=== PATIENT | male | born 1985 | race American Indian/Alaskan Native ===

== ENCOUNTER 2017-06-26 09:22 | Emergency (ER) | payer SELFPAY ==
[2017-06-26 10:28] VITALS: BP 117/81
[2017-06-26] MEDS ORDERED: FLEXERIL PO ONE (10:42)
[2017-06-26] MEDS ORDERED: MOTRIN PO ONE (10:42)
--- NOTE | 2017-06-26 10:47 | Emergency Department Report ---
ED Neck Pain [facility] Chief Complaint: Neck Pain/Injury Stated Complaint: NECK PAIN Time Seen by Provider: 06/26/17 10:39 Duration: 2 weeks Neck Pain Location: Lateral Neck, Trapezius Severity: moderate Mechanism: Awkward Position Symptoms: Yes Pain with Movement, Yes Radiation to Right Upper Ext, Yes Previous History, No Radiation to Left Upper Ext, No Numbness, No Weakness ED Review of Systems ROS: Stated complaint: NECK PAIN Other details as noted in HPI Constitutional: denies: chills, fever Eyes: denies: eye pain, eye discharge, vision change ENT: denies: ear pain, throat pain Respiratory: denies: cough, shortness of breath, wheezing Cardiovascular: denies: chest pain, palpitations Endocrine: no symptoms reported Gastrointestinal: denies: abdominal pain, nausea, diarrhea Genitourinary: denies: urgency, dysuria Musculoskeletal: myalgia. denies: back pain, joint swelling, arthralgia Skin: denies: rash, lesions Neurological: denies: headache, weakness, numbness, paresthesias, confusion Psychiatric: denies: anxiety, depression Hematological/Lymphatic: denies: easy bleeding, easy bruising ED Past Medical Hx - Past Medical History Previous Medical History?: No - Surgical History Past Surgical History?: No - Social History Smoking Status: Never Smoker Substance Use Type: Alcohol - Medications Home Medications: Home Medications Medication Instructions Recorded Confirmed Last Taken Type Cyclobenzaprine [Flexeril] 10 mg PO BID PRN #20 tablet 06/26/17 Unknown Rx Menthol/Camphor [[place] Merkel 1 applicatio TP TID PRN #1 tube 06/26/17 Unknown Rx Ointment] Naproxen [Naprosyn] 500 mg PO BID PRN #30 tablet 06/26/17 Unknown Rx Neck Pain Exam - Exam General: Vital signs noted. No distress. Alert and acting appropriately. HEENT: Yes Abrasion, No Facial Pain, No Scalp Tenderness, No Contusion, No Laceration Neck Pain: Yes Right Trapezius Tenderness, Yes Pain with Rotation Right, Yes pain with R Lateral Flexion, No Midline Tenderness, No Right Paraspinal Tenderness, No Left Paraspinal Tenderness, No Left Trapezius Tenderness, No Pain with Rotation Left, No Pain with Extension, No Pain with Flexion, No Pain with L Lateral Flexion Chest: Yes Clear Lung Sounds, No Pain with Respirations Heart: Yes Regular, No Murmur Back: No Thoracic Tenderness, No Lumbar Tenderness Neuro: Yes Normal Reflexes, No Numbness, No Weakness, No Radicular Deficits ED Course Vital Signs 06/26/17 10:26 Temperature 98.3 F Pulse Rate 60 Respiratory 16 Rate Blood Pressure 117/81 O2 Sat by Pulse 99 Oximetry ED Medical Decision Making - Medical Decision Making Patient is a 31-year-old -[place] 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 for right lateral neck pain recurrent for past 1-2 years this exacerbation for the last 2 weeks states for 10 right-sided neck pain and spasm exacerbated by movement described as I think I slept wrong pain is relieved by rest pain is exacerbated by right sided movement twisting range of motion intact including chin to chest bilateral shoulders and full neck extension without restriction there is no numbness no weakness or tingling loss or decrease in bowel or bladder function exam no swelling no ecchymois no deformity no crepitus no stepoff no posterior vertebral point tenderness , plan NSAIDs muscle relaxants when she therapy neck exercises and follow with PCP patient will return to ED if symptoms worsen will be discharged to home in stable condition at this time. Critical care attestation.: If time is entered above; I have spent that time in minutes in the direct care of this critically ill patient, excluding procedure time. ED Disposition Clinical Impression: Neck muscle strain Qualifiers: Encounter type: initial encounter Qualified Code(s): S16.1XXA - Strain of muscle, fascia and tendon at neck level, initial encounter Disposition: - TO HOME OR SELFCARE Is pt being admited?: No Does the pt Need Aspirin: No Condition: Good Instructions: Cervical Spine Strain (ED) Prescriptions: Cyclobenzaprine [Flexeril] 10 mg PO BID PRN #20 tablet PRN Reason: Muscle Spasm Menthol/Camphor [[place] Merkel Ointment] 1 applicatio TP TID PRN #1 tube PRN Reason: pain Naproxen [Naprosyn] 500 mg PO BID PRN #30 tablet PRN Reason: pain Referrals: ELE SEYMOUR MD [Staff Physician] - 3-5 Days Forms: Work/School Release Form(ED) Time of Disposition: 10:50
== END 2017-06-26 10:56 | disposition home or self-care (01) ==
LOC: ED 09:22
DX: S16.1XXA Strain of muscle, fascia and tendon at neck level, initial encounter (principal); X58.XXXA Exposure to other specified factors, initial encounter; Y93.89 Activity, other specified; Y92.89 Other specified places as the place of occurrence of the external cause; Y99.8 Other external cause status
CPT/HCPCS: 99282